=== PATIENT | female | born 1975 | race Caucasian/White ===

== ENCOUNTER 2016-09-17 09:42 | Emergency (ER) | payer MEDICARE, MEDICAID ==
[~2016-09-17] VITALS: Ht 172.7 cm; Wt 110.0 kg
[2016-09-17 09:44] VITALS: BP 141/68; PULSE 101; RESP 18; TEMP 97.6; O2SAT 100
--- NOTE | 2016-09-17 10:13 | PD ---
HPI Chief Complaint: Abdominal Pain Time Seen by Provider: 10:12 Travel History International Travel<30 days: No Contact w/Intl Traveler<30days: No Traveled to known affect area: No History of Present Illness HPI 40-year-old female came to the emergency room with history of abdominal pain and vomiting blood. Patient recently moved from another town and says she has history of gastric bypass that was done several years ago. She has had this problem in the past and required blood transfusion. She was slightly tachycardic in triage. Answering questions appropriately. Looks to be in discomfort. [facility] Past Medical History Narrative Medical List of her past medical history is reviewed from the nursing note. Anemia: Yes (BLOOD TRANSFUSIONS) Depression: Yes Diminished Hearing: No Hiatal Hernia: Yes Immunizations Current: No Seizures: Yes Tetanus Vaccination: > 5 Years Influenza Vaccination: No ?: Not LMP: 08/15/2016 : 6 Para: 2 Miscarriage: 1 : 3 Past Surgical History Abdominal Surgery: Yes (GASTRIC BYPASS 2000) Social History Alcohol Use: No Tobacco Use: Yes (09/07 PPD) Substance Use: No (DENIES) Allergies-Medications (Allergen,Severity, Reaction): Coded Allergies: Compazine (Verified Allergy, Unknown, psychotic break, 09/17/16) Comments List of her allergies reviewed from the nursing note. Reported Meds & Prescriptions Reported Meds & Active Scripts Active Omeprazole 20 Mg Tab 20 Mg PO DAILY Narrative Medication Awaiting for the nurse to do a med reconciliation for her home medications. Review of Systems Except as stated in HPI: all other systems reviewed are Neg Physical Exam Narrative GENERAL: Awake, alert, obese, moderate distress SKIN: Warm and dry. HEAD: Atraumatic. Normocephalic. EYES: Pupils equal and round. No scleral icterus. No injection or drainage. ENT: No nasal bleeding or discharge. Mucous membranes pink and moist. NECK: Trachea midline. No JVD. CARDIOVASCULAR: Regular rate and rhythm. No murmur appreciated. RESPIRATORY: No accessory muscle use. Clear to auscultation. Breath sounds equal bilaterally. GASTROINTESTINAL: Abdomen soft, non-tender, nondistended. Hepatic and splenic margins not palpable. MUSCULOSKELETAL: No obvious deformities. No clubbing. No cyanosis. No edema. NEUROLOGICAL: Awake and alert. No obvious cranial nerve deficits. Motor grossly within normal limits. Normal speech. PSYCHIATRIC: Appropriate mood and affect; insight and judgment normal. Data Data Last Documented VS Vital Signs Date Time Temp Pulse Resp B/P Pulse Ox O2 Delivery O2 Flow Rate FiO2 09/17/16 10:46 82 18 111/53 98 Room Air 09/17/16 09:44 97.6 Orders Complete Blood Count With Diff (09/17/16 10:24) Comprehensive Metabolic Panel (09/17/16 10:24) Lipase (09/17/16 10:24) Urinalysis - C+S If Indicated (09/17/16 10:24) Ct Abd/Pel W/O Iv Contrast (09/17/16 10:24) Iv Access Insert/Monitor (09/17/16 10:24) Ecg Monitoring (09/17/16 10:24) Oximetry (09/17/16 10:24) Ed Urine Pregnancytest Poc (09/17/16 10:24) Morphine Inj (Morphine Inj) (09/17/16 10:45) Ondansetron Inj (Zofran Inj) (09/17/16 10:45) Sodium Chlor 0.9% 1000 Ml Inj (Ns 1000 M (09/17/16 10:45) Pantoprazole Inj (Protonix Inj) (09/17/16 11:45) Labs Laboratory Tests Test 09/17/16 09/17/16 10:30 10:45 White Blood Count 8.4 TH/MM3 Red Blood Count 4.81 MIL/MM3 Hemoglobin 13.1 GM/DL Hematocrit 38.9 % Mean Corpuscular Volume 81.0 FL Mean Corpuscular Hemoglobin 27.2 PG Mean Corpuscular Hemoglobin 33.6 % Concent Red Cell Distribution Width 14.7 % Platelet Count 205 TH/MM3 Mean Platelet Volume 8.8 FL Neutrophils (%) (Auto) 64.1 % Lymphocytes (%) (Auto) 27.7 % Monocytes (%) (Auto) 7.6 % Eosinophils (%) (Auto) 0.0 % Basophils (%) (Auto) 0.6 % Neutrophils # (Auto) 5.4 TH/MM3 Lymphocytes # (Auto) 2.3 TH/MM3 Monocytes # (Auto) 0.6 TH/MM3 Eosinophils # (Auto) 0.0 TH/MM3 Basophils # (Auto) 0.1 TH/MM3 CBC Comment DIFF FINAL Differential Comment Sodium Level 138 MEQ/L Potassium Level 4.8 MEQ/L Chloride Level 103 MEQ/L Carbon Dioxide Level 27.8 MEQ/L Anion Gap 7 MEQ/L Blood Urea Nitrogen 12 MG/DL Creatinine 0.76 MG/DL Estimat Glomerular Filtration 85 ML/MIN Rate Random Glucose 98 MG/DL Calcium Level 8.9 MG/DL Total Bilirubin 0.2 MG/DL Aspartate Amino Transf 20 U/L (AST/SGOT) Alanine Aminotransferase 27 U/L (ALT/SGPT) Alkaline Phosphatase 62 U/L Total Protein 7.2 GM/DL Albumin 3.6 GM/DL Lipase 141 U/L Urine Color LIGHT-YELLOW Urine Turbidity HAZY Urine pH 6.5 Urine Specific [place] 1.005 Urine Protein NEG mg/dL Urine Glucose (UA) NEG mg/dL Urine Ketones NEG mg/dL Urine Occult Blood NEG Urine Nitrite NEG Urine Bilirubin NEG Urine Urobilinogen LESS THAN 2.0 MG/DL Urine Leukocyte Esterase NEG Urine RBC 2 /hpf Urine WBC 1 /hpf Urine Squamous Epithelial 11 /hpf Cells Urine Amorphous Sediment RARE Urine Bacteria RARE /hpf Urine Mucus FEW /lpf Microscopic Urinalysis Comment CULT NOT INDICATED MDM Medical Decision Making Medical Screen Exam Complete: Yes Emergency Medical Condition: Yes Medical Record Reviewed: Yes Differential Diagnosis Acute pancreatitis, small bowel obstruction, Narrative Course 10:36 AM blood test results of back and within normal limit. Patient is not anemic. Urine analysis is normal. Awaiting for the CAT scan to be done and resulted. Patient is given 1 L of IV fluid bolus and morphine for the pain. 12:05 PM CAT scan shows status post cholecystectomy and gastric bypass. No acute abnormality was detected. Patient will be discharged home. Procedures EKG Prior to Arrival: No HemaPrompt Point of Care Internal Pos. & Neg. Controls: Passed Fecal Specimen Occult Blood: Negative Diagnosis Primary Impression: Acute gastritis Qualified Code: K29.01 - Acute gastritis with hemorrhage, unspecified gastritis type Additional Impression: acute on chronic abdominal pain Referrals: Primary Care Physician 2 days Additional Instructions: Please return to the ER if the condition worsens or any other new concerns. Otherwise follow-up with your primary care. Take the medication as per the prescription direction. Med/Other Pt SpecificInfo: Prescription(s) given Scripts Omeprazole 20 Mg Tab20 Mg PO DAILY #30 TAB Ref 0 Prov:Za Lees MD 09/17/16 Disposition: 01 DISCHARGE HOME Condition: Stable Za Lees MD Sep 17, 2016 10:13
[2016-09-17] MEDS ORDERED: MORPHINE SULFATE 4 MG/ML INJ IV PUSH ONE (10:45)
[2016-09-17] MEDS ORDERED: SODIUM CHLOR 0.9% 1000 ML INJ 1,000 ML IV ONE (10:45)
[2016-09-17] MEDS ORDERED: ONDANSETRON HCL 4 MG/2 ML VIAL IV PUSH ONE (10:45)
[2016-09-17 10:46] VITALS: BP 111/53; PULSE 82; RESP 18; O2SAT 98
[2016-09-17 10:55] LABS: AUTOMATED NEUTROPHIL # 5.4 TH/MM3 (1.8-7.7); BASOPHIL # 0.1 TH/MM3 (0-0.2); BASOPHIL % 0.6 % (0.0-2.0); HEMATOCRIT 38.9 % (35.0-46.0); HEMO FLAGS DIFF FINAL; LYMPH % 27.7 % (9.0-44.0); LYMPHOCYTE # 2.3 TH/MM3 (1.0-4.8); MEAN CORPUSCULAR HEMOGLOBIN 27.2 PG (27.0-34.0); MEAN CORPUSCULAR HGB CONC 33.6 % (32.0-36.0); MONO % 7.6 % (0.0-8.0); NEUT % 64.1 % (16.0-70.0); PLATELET COUNT 205 TH/MM3 (150-450); RED BLOOD COUNT 4.81 MIL/MM3 (4.00-5.30); RED CELL DISTRIBUTION WIDTH 14.7 % (11.6-17.2); WHITE BLOOD COUNT 8.4 TH/MM3 (4.0-11.0)
[2016-09-17 11:09] LABS: BACTERIA, URINE RARE /hpf; BLOOD, URINE NEG (NEG); COMMENT (UR) CULT NOT INDICATED; CULTURE IF INDICATED CULT NOT INDICATED; GLUCOSE,URINE NEG (NEG); KETONE, URINE NEG (NEG); MUCUS URINE FEW /lpf (OCC); NITRITE,URINE NEG (NEG); PH, URINE 6.5 (5.0-8.5); SQUAMOUS EPITHELIAL CELL URINE 11 /hpf (0-5); URINE COLOR LIGHT-YELLOW (YELLW/STRAW)
[2016-09-17 11:12] LABS: ALKALINE PHOSPHATASE 62 U/L (45-117); ALT (GPT) 27 U/L (10-53); ANION GAP 7 MEQ/L (5-15); AST (GOT) 20 U/L (15-37); BICARBONATE 27.8 MEQ/L (21.0-32.0); BLOOD UREA NITROGEN 12 MG/DL (7-18); CHLORIDE 103 MEQ/L (98-107); GLOMERULAR FILTRATION RATE 85 ML/MIN (>89); SODIUM (NA) 138 MEQ/L (136-145); TOTAL BILIRUBIN ADULT 0.2 MG/DL (0.2-1.0)
[2016-09-17 11:24] LABS: POTASSIUM 4.8 MEQ/L (3.5-5.1)
[2016-09-17] MEDS ORDERED: PANTOPRAZOLE SODIUM 40 MG VIAL IV PUSH ONE (11:45)
--- NOTE | 2016-09-17 12:03 | RADRPT ---
EXAM DATE/TIME: 09/17/2016 11:44 [facility] COMPARISON: No previous studies available for comparison. INDICATIONS : Abdomen pain with nausea and vomiting for three days. ORAL CONTRAST: No oral contrast ingested. RADIATION DOSE: 16.27 CTDIvol (mGy) MEDICAL HISTORY : Hernia, hiatal. SURGICAL HISTORY : Gastric bypass. ENCOUNTER: Initial ACUITY: 1 day PAIN SCALE: 6/10 LOCATION: Bilateral abdomen. TECHNIQUE: Volumetric scanning of the abdomen and pelvis was performed. Using automated exposure control and ad justment of the mA and/or kV according to patient size, radiation dose was kept as low as reasonably achievable to obtain optimal diagnostic quality images. FINDINGS: LOWER LUNGS: The visualized lower lungs are clear. LIVER: Homogeneous density without lesion. There is no dilation of the biliary tree. Status post cholecyste ctomy. SPLEEN: Normal size without lesion. PANCREAS: Within normal limits. KIDNEYS: Normal in size and shape. There is no mass, stone, or hydronephrosis. ADRENAL GLANDS: Within normal limits. VASCULAR: There is no aortic aneurysm. BOWEL/MESENTERY: The stomach, small bowel, and colon demonstrate no acute abnormality. There is no free intraperitone al air or fluid. Sutures consistent with gastric bypass. The appendix is normal ABDOMINAL WALL: Within normal limits. RETROPERITONEUM: There is no lymphadenopathy. BLADDER: No wall thickening or mass. REPRODUCTIVE: Within normal limits. INGUINAL: There is no lymphadenopathy or hernia. MUSCULOSKELETAL: Within normal limits for patient age. CONCLUSION: Normal examination status post cholecystectomy and gastric bypass. No evidence of free fluid or mass. No evidence of obstruction. Ke Crump MD on September 17, 2016 at 12:00 Board Certified Radiologist. This report was verified electronically.
[2016-09-17] MEDS ORDERED: OMEP20TA PO (12:07)
== END 2016-09-17 12:39 | disposition home or self-care (01) ==
LOC: NEPC 09:42
DX: K29.01 Acute gastritis with bleeding (principal); R10.9 Unspecified abdominal pain; G89.29 Other chronic pain; D64.9 Anemia, unspecified; F17.210 Nicotine dependence, cigarettes, uncomplicated
CPT/HCPCS: 74176; 80053; 81001; 83690; 84703; 85025; 96361; 96374; 96375; 99284; C9113; J2270; J2405; J7030

== ENCOUNTER 2016-09-22 09:52 | Emergency (ER) | payer MEDICARE, MEDICAID ==
[~2016-09-22] VITALS: Ht 175.3 cm; Wt 111.0 kg
[~2016-09-22 09:52] MED LIST: OMEP20TA PO
[2016-09-22 09:54] VITALS: BP 159/100; PULSE 108; RESP 18; TEMP 98.3; O2SAT 98
[2016-09-22 10:02] VITALS: BP 127/58; PULSE 96; RESP 18; O2SAT 100
[2016-09-22] MEDS ORDERED: SODIUM CHLOR 0.9% 1000 ML INJ 1,000 ML IV ONE (10:13)
[2016-09-22] MEDS ORDERED: TEMA15CA PO (10:18)
[2016-09-22] MEDS ORDERED: ZYPR20TA PO (10:18)
[2016-09-22] MEDS ORDERED: FLUO60TA PO (10:18)
[2016-09-22] MEDS ORDERED: ALBUAER3 INH (10:18)
[2016-09-22] MEDS ORDERED: XANA2TAB2 PO (10:18)
[2016-09-22] MEDS ORDERED: TRIL600T PO (10:18)
--- NOTE | 2016-09-22 10:20 | PD ---
HPI Chief Complaint: [employer] Problem/Complaint Time Seen by Provider: 10:16 Travel History International Travel<30 days: No Contact w/Intl Traveler<30days: No Traveled to known affect area: No History of Present Illness HPI 40-year-old female presents to the emergency department for evaluation of low back pain and positive test. Patient was seen in the emergency department 5 days ago. At that time, her urine test was negative. CT of abdomen and pelvis showed no acute abnormality. Patient was discharged with a diagnosis of acute gastritis. She states that she has been having low back pain since then. She had a positive test this morning at home. She also states that when she woke up this morning, she had a large amount of brown vaginal discharge. Patient does report a new sexual partner for the past month. She also reports a history of gastric bypass, anemia, seizures, and bipolar disorder. Patient denies any fevers. Patient is G6, P2 with one previous miscarriage and 2 previous abortions as well as two live births. PFSH Past Medical History Anemia: Yes (BLOOD TRANSFUSIONS) Bipolar Disorder: Yes Depression: Yes Diminished Hearing: No Hiatal Hernia: Yes Psychiatric: Yes Respiratory: Yes (CHRONIC BRONCHITIS) Immunizations Current: No Seizures: Yes Tetanus Vaccination: < 5 Years Influenza Vaccination: No ?: Unknown LMP: 08/21/16 : 6 Para: 2 Miscarriage: 1 : 3 Past Surgical History Abdominal Surgery: Yes (GASTRIC BYPASS 2000) Social History Alcohol Use: No Tobacco Use: Yes (09/07 PPD) Substance Use: No (DENIES) Allergies-Medications (Allergen,Severity, Reaction): Coded Allergies: Phenergan (Verified Adverse Reaction, Severe, 09/22/16) PHYSCOTIC BREAK Compazine (Verified Adverse Reaction, Unknown, psychotic break, 09/22/16) Reported Meds & Prescriptions Reported Meds & Active Scripts Active Macrobid (Nitrofurantoin Monoh/Nitrofur Macro) 100 Mg Cap 100 Mg PO BID 7 Days Flagyl (Metronidazole) 500 Mg Tab 500 Mg PO BID 7 Days Reported Proair Hfa 8.5 GM Inh (Albuterol Sulfate) 90 Mcg/Act Aer 1 Puff INH BID PRN 108 mcg/actuation Temazepam 15 Mg Cap 15 Mg PO HS PRN Zyprexa (Olanzapine) 20 Mg Tab 20 Mg PO DAILY Fluoxetine (Fluoxetine HCl) 60 Mg Tab 50 Mg PO DAILY Xanax (Alprazolam) 2 Mg Tab 2 Mg PO Q8H PRN Trileptal (Oxcarbazepine) 600 Mg Tab 600 Mg PO TID Review of Systems Except as stated in HPI: all other systems reviewed are Neg Physical Exam Narrative GENERAL: Well-developed well-nourished female patient, ambulatory. Afebrile. SKIN: Warm and dry. HEAD: Normocephalic. Atraumatic. EYES: No scleral icterus. No injection or drainage. NECK: Supple, trachea midline. No JVD or lymphadenopathy. CARDIOVASCULAR: Regular rate and rhythm without murmurs, gallops, or rubs. RESPIRATORY: Breath sounds equal bilaterally. No accessory muscle use. Lungs sounds clear to auscultation. GASTROINTESTINAL: Abdomen soft, non-tender, nondistended. MUSCULOSKELETAL: No cyanosis, or edema. BACK: Nontender without obvious deformity. No CVA tenderness. GENITOURINARY: Normal external genitalia without lesions or erythema. Vaginal vault with mild brown discharge. Cervical os was closed without drainage. No cervical motion tenderness. Uterus nontender and nonenlarged. Bilateral adnexa nontender without masses. Pelvic exam was done with nurse at bedside. Data Data Last Documented VS Vital Signs Date Time Temp Pulse Resp B/P Pulse Ox O2 Delivery O2 Flow Rate FiO2 09/22/16 12:17 16 09/22/16 11:16 76 118/68 100 Room Air 09/22/16 09:54 98.3 Orders Beta Hcg (Quant/Titer) (09/22/16 10:13) Complete Blood Count With Diff (09/22/16 10:13) Comprehensive Metabolic Panel (09/22/16 10:13) Wet Prep Profile (09/22/16 10:13) Urinalysis - C+S If Indicated (09/22/16 10:13) Complete Rh (09/22/16 10:13) Iv Access Insert/Monitor (09/22/16 10:13) Sodium Chlor 0.9% 1000 Ml Inj (Ns 1000 M (09/22/16 10:13) Ed Urine Pregnancytest Poc (09/22/16 10:13) Gc And Chlamydia Pcr (09/22/16 10:13) Urine Culture (09/22/16 09:40) Acetaminophen (Tylenol) (09/22/16 11:15) Us Pelvis (Ques Pr/Ect)W Trans (09/22/16 ) Hydromorphone Pf Inj (Dilaudid Pf Inj) (09/22/16 14:00) Attending Discharge Order (09/22/16 ) Methotrexate Pf Inj (Methotrexate Pf Inj (09/22/16 15:00) Methotrexate Pf Inj (Methotrexate Pf Inj (09/22/16 15:00) Labs Laboratory Tests Test 09/22/16 09/22/16 09:40 09:46 Urine Color YELLOW Urine Turbidity HAZY Urine pH 6.0 Urine Specific [place] 1.009 Urine Protein NEG mg/dL Urine Glucose (UA) NEG mg/dL Urine Ketones NEG mg/dL Urine Occult Blood NEG Urine Nitrite NEG Urine Bilirubin NEG Urine Urobilinogen LESS THAN 2.0 MG/DL Urine Leukocyte Esterase TRACE Urine RBC 18 /hpf Urine WBC 12 /hpf Urine Squamous Epithelial 5 /hpf Cells Urine Amorphous Sediment RARE Urine Bacteria MANY /hpf Urine Hyaline Casts 1 /lpf Urine Mucus FEW /lpf Microscopic Urinalysis Comment CULTURE INDICATED Clue Cells (Wet Prep) PRESENT Vaginal Trichomonas (Wet Prep) NONE SEEN Vaginal Yeast (Wet Prep) NONE SEEN Chlamydia trachomatis DNA NOT DETECTED (PCR) Neisseria gonorrhoeae DNA NOT DETECTED (PCR) White Blood Count 8.1 TH/MM3 Red Blood Count 4.91 MIL/MM3 Hemoglobin 13.1 GM/DL Hematocrit 40.1 % Mean Corpuscular Volume 81.8 FL Mean Corpuscular Hemoglobin 26.6 PG Mean Corpuscular Hemoglobin 32.6 % Concent Red Cell Distribution Width 14.9 % Platelet Count 231 TH/MM3 Mean Platelet Volume 8.8 FL Neutrophils (%) (Auto) 67.9 % Lymphocytes (%) (Auto) 24.5 % Monocytes (%) (Auto) 6.8 % Eosinophils (%) (Auto) 0.0 % Basophils (%) (Auto) 0.8 % Neutrophils # (Auto) 5.5 TH/MM3 Lymphocytes # (Auto) 2.0 TH/MM3 Monocytes # (Auto) 0.5 TH/MM3 Eosinophils # (Auto) 0.0 TH/MM3 Basophils # (Auto) 0.1 TH/MM3 CBC Comment DIFF FINAL Differential Comment Sodium Level 136 MEQ/L Potassium Level 3.8 MEQ/L Chloride Level 104 MEQ/L Carbon Dioxide Level 24.2 MEQ/L Anion Gap 8 MEQ/L Blood Urea Nitrogen 10 MG/DL Creatinine 0.76 MG/DL Estimat Glomerular Filtration 85 ML/MIN Rate Random Glucose 122 MG/DL Calcium Level 8.4 MG/DL Total Bilirubin 0.2 MG/DL Aspartate Amino Transf 78 U/L (AST/SGOT) Alanine Aminotransferase 415 U/L (ALT/SGPT) Alkaline Phosphatase 141 U/L Total Protein 7.1 GM/DL Albumin 3.5 GM/DL Human Chorionic Gonadotropin, 747 MIU/ML Quant Blood Type A POSITIVE Rho(D) Type POSITIVE MDM Medical Decision Making Medical Screen Exam Complete: Yes Emergency Medical Condition: Yes Medical Record Reviewed: Yes Differential Diagnosis Intrauterine versus ectopic versus vaginitis versus UTI versus pyelonephritis Narrative Course 40-year-old female presents to the emergency department for evaluation of low back pain and brown vaginal discharge as well as positive test at home. Urine test the emergency department is positive. CBC, CMP, beta hCG, UA, the Rh are ordered and pending. Wet prep and GC chlamydia swab are ordered and pending. Ultrasound to rule ectopic is ordered and pending. CBC shows no acute abnormalities. CMP shows elevated AST of 78, ALT of 415, alkaline phosphatase 141. Beta hCG is 747. UA shows trace leukocyte esterase, 18 RBC, 12 WBC, many bacteria. Complete Rh shows blood type is A+. Wet prep is positive for clue cells, negative for Trichomonas and yeast. Chlamydia and gonorrhea were not detected. Ultrasound [-]. I contacted [employer] salesperson, Dr. Murillo, who came and saw the patient. She ordered methotrexate and would like the patient to follow up in the office. Patient will be discharged with a prescription for Macrobid for UTI and Flagyl for BV. Diagnosis Primary Impression: Abnormal in first trimester Additional Impressions: Bacterial vaginosis Urinary tract infection Qualified Code: N30.01 - Acute cystitis with hematuria Referrals: Marilyn Murillo MD call for appointment Patient Instructions: Bacterial Vaginosis (ED), General Instructions, Urinary Tract Infection in Women (ED) Additional Instructions: Take Macrobid as directed until gone. Take Flagyl as directed until gone. Do not drink alcohol level taking Flagyl or you'll get very sick. Follow-up with Dr. Murillo. Call her office for an appointment. Return to the emergency department for any acute worsening of symptoms. Med/Other Pt SpecificInfo: Prescription(s) given Scripts Nitrofurantoin Monohydrate Macrocrystals (Macrobid)100 Mg [id number] Mg PO BID 7 Days Ref 0 Prov:Corie Francis 09/22/16 Metronidazole (Flagyl)500 Mg [id number] Mg PO BID 7 Days Ref 0 Prov:Corie Francis 09/22/16 Disposition: 01 DISCHARGE HOME Condition: Stable Corie Francis Sep 22, 2016 10:20
[2016-09-22 10:41] LABS: AUTOMATED NEUTROPHIL # 5.5 TH/MM3 (1.8-7.7); BASOPHIL # 0.1 TH/MM3 (0-0.2); BASOPHIL % 0.8 % (0.0-2.0); HEMATOCRIT 40.1 % (35.0-46.0); HEMO FLAGS DIFF FINAL; LYMPH % 24.5 % (9.0-44.0); MEAN CELL VOLUME 81.8 FL (80.0-100.0); MEAN CORPUSCULAR HEMOGLOBIN 26.6 PG (27.0-34.0); MEAN CORPUSCULAR HGB CONC 32.6 % (32.0-36.0); MONO % 6.8 % (0.0-8.0); NEUT % 67.9 % (16.0-70.0); PLATELET COUNT 231 TH/MM3 (150-450); RED BLOOD COUNT 4.91 MIL/MM3 (4.00-5.30); RED CELL DISTRIBUTION WIDTH 14.9 % (11.6-17.2); WHITE BLOOD COUNT 8.1 TH/MM3 (4.0-11.0)
[2016-09-22 10:48] LABS: BACTERIA, URINE MANY /hpf; BLOOD, URINE NEG (NEG); GLUCOSE,URINE NEG (NEG); HYALINE CAST, URINE 1 /lpf (RARE); KETONE, URINE NEG (NEG); MUCUS URINE FEW /lpf (OCC); NITRITE,URINE NEG (NEG); SQUAMOUS EPITHELIAL CELL URINE 5 /hpf (0-5); URINE COLOR YELLOW (YELLW/STRAW)
[2016-09-22 10:49] LABS: COMMENT (UR) CULTURE INDICATED; CULTURE IF INDICATED CULTURE INDICATED
[2016-09-22 11:07] LABS: ALKALINE PHOSPHATASE 141 U/L (45-117); ALT (GPT) 415 U/L (10-53); BETA HCG QUANT 747 MIU/ML (0-5); TOTAL BILIRUBIN ADULT 0.2 MG/DL (0.2-1.0)
[2016-09-22 11:10] LABS: ANION GAP 8 MEQ/L (5-15); BICARBONATE 24.2 MEQ/L (21.0-32.0); BLOOD UREA NITROGEN 10 MG/DL (7-18); CHLORIDE 104 MEQ/L (98-107); GLOMERULAR FILTRATION RATE 85 ML/MIN (>89); SODIUM (NA) 136 MEQ/L (136-145)
[2016-09-22 11:11] LABS: AST (GOT) 78 U/L (15-37); POTASSIUM 3.8 MEQ/L (3.5-5.1)
[2016-09-22] MEDS ORDERED: ACETAMINOPHEN 325 MG TAB PO ONE (11:15)
[2016-09-22 11:16] VITALS: BP 118/68; PULSE 76; RESP 17; O2SAT 100
[2016-09-22 12:31] LABS: CHLAMYDIA PCR NOT DETECTED (NOT DETECT); NEISSERIA PCR NOT DETECTED (NOT DETECT)
--- NOTE | 2016-09-22 12:57 | RADRPT ---
EXAM DATE/TIME: 09/22/2016 12:06 [facility] COMPARISON: No previous studies available for comparison. INDICATIONS : Pelvic and back pain with vaginal spotting. LAB(S): Beta-hC MEDICAL HISTORY : . Anemia. Seizure. Bipolar. SURGICAL HISTORY : Gastric bypass. ENCOUNTER: Initial ACUITY: 1 day PAIN SCORE: 8/10 LOCATION: Bilateral pelvis MEASUREMENTS: UTERUS: 10.2 x 7.4 x 5.7 cm ENDOMETRIAL STRIPE: 18 mm RIGHT OVARY: 3.0 x 3.2 x 3.3 cm LEFT OVARY: 3.0 x 1.6 x 1.3 cm FINDINGS: UTERUS: The myometrium has homogeneous echotexture without mass.There is some thickening of the endometrial l ining. There is a small amount of fluid in the endometrial cavity. No definite gestational sac is dem onstrated. There is a nabothian cyst on the cervix. RIGHT OVARY: There is a complex area in the right ovary area that appears to be hypervascular. This is nonspecific . LEFT OVARY: Ovary contains no mass or significant cystic lesion. MISCELLANEOUS: Trace of free fluid in the cul-de-sac CONCLUSION: 1. No gestational sac is demonstrated. 2. Trace of fluid in the endometrial cavity. 3. 4. Mild complex area in the region of the right ovary with some hypervascularity which is nonspecific . The differential considerations include: 5. Early IUP not visualized, early ectopic not visualized versus spontaneous . Toni mmend serial beta hCGs and followup ultrasound if indicated. Christian Weaver MD on September 22, 2016 at 12:52 Board Certified Radiologist. This report was verified electronically.
[2016-09-22 13:30] VITALS: BP 130/77; PULSE 82; RESP 16; TEMP 97.8; O2SAT 99
[2016-09-22] MEDS ORDERED: HYDROmorphone HCL PF 1 MG/ML VIAL IV PUSH ONE (14:00)
[2016-09-22] MEDS ORDERED: MACR100C2 PO (14:28)
[2016-09-22] MEDS ORDERED: METR-1 PO (14:28)
[2016-09-22 14:58] VITALS: RESP 16
[2016-09-22] MEDS ORDERED: METHOTREXATE IM ONE (15:00)
[2016-09-22 18:18] VITALS: BP 130/76; TEMP 97.8
--- NOTE | 2016-10-04 10:55 | PD.CONS ---
History of Present Illness Service Gynecology Consult Requested By Corie GRAHAM Reason for Consult Evaluate and treat for ectopic . Primary Care Physician Unknown Diagnoses: (1) Ectopic (2) Abnormal in first trimester (3) Bipolar 1 disorder, manic, moderate History of Present Illness 40 y/o SWF new to area with LMP 08/21/16. Patient has significant medical problems including bipolar disorder, seizures, s/p gastric bypass, etc. She did not raise her own children and intends no more pregnancies. She was seen in ER 09/17/16 for gastritis and denied the possibility of at that point. CT of abdomen and pelvis showed no pelvic abnormalities. The patient had a large amount of brown discharge and some non-specific pelvic pain on presentation today. Ultrasound shows a mildly thickened endometrium without evidence of IUP, and some mild adnexal changes which could represent an ectopic , but not specific for location, no specific mass identified, and no significant free fluid. After discussing options for serial serum HCG vs empiric treatment for ectopic . The patient requests medical treatment for ectopic without hesitation. She knows MTX can damage a normal as well as an ectopic one, but does not want to take a chance on it either way. The need for follow up and the small but real possibility that the may progress despite medical treatment is stressed. Review of Systems Constitutional: COMPLAINS OF: Change in appetite, DENIES: Diaphoretic episodes , Fatigue, Fever, Weight gain, Weight loss, Chills, Dizziness, Night Sweats Endocrine: COMPLAINS OF: Abnorml menstrual pattern, DENIES: Heat/cold intolerance, Polydipsia, Polyuria, Polyphagia Eyes: DENIES: Blurred vision, Diplopia, Eye inflammation, Eye pain, Vision loss , Photosensitivity, Double Vision Ears, nose, mouth, throat: DENIES: Tinnitus, Hearing loss, Vertigo, Nasal discharge, Oral lesions, Throat pain, Hoarseness, Ear Pain, Running Nose, Epistaxis, Sinus Pain, Toothache, Odynophagia Respiratory: DENIES: Apneas, Cough, Snoring, Wheezing, Hemoptysis, Sputum production, Shortness of breath Cardiovascular: DENIES: Chest pain, Palpitations, Syncope, Dyspnea on Exertion , PND, Lower Extremity Edema, Orthopnea, Claudication Gastrointestinal: COMPLAINS OF: Abdominal pain, Nausea, Vomiting, DENIES: Black stools, Bloody stools, Constipation, Diarrhea, Difficulty Swallowing, Anorexia Genitourinary: COMPLAINS OF: Abnormal vaginal bleeding, DENIES: Dysmenorrhea, Dyspareunia, Sexual dysfunction, Urinary frequency, Urinary incontinence, Urgency, Hematuria, Dysuria, Nocturia, Vaginal discharge Musculoskeletal: DENIES: Joint pain, Muscle aches, Stiffness, Joint Swelling, Back pain, Neck pain Integumentary: DENIES: Abnormal pigmentation, Pruritus, Rash, Nail changes, Breast masses, Breast skin changes, Nipple discharge Hematologic/lymphatic: DENIES: Bruising, Lymphadenopathy Immunologic/allergic: DENIES: Eczema, Urticaria Neurologic: DENIES: Abnormal gait, Headache, Localized weakness, Paresthesias, Seizures, Speech Problems, Tremor, Poor Balance Psychiatric: COMPLAINS OF: Anxiety Past Family Social History Allergies: Coded Allergies: Phenergan (Verified Adverse Reaction, Severe, 09/29/16) PHYSCOTIC BREAK Compazine (Verified Adverse Reaction, Unknown, psychotic break, 09/29/16) Past Medical History Seizures Bipolar disorder Anemia Past Surgical History Gastric bypass x3 Reported Medications see chart Family History Non-contributory Social History Smokes daily Denies drug abuse or alcohol Physical Exam Physical Exam GENERAL: This is a well-nourished, well-developed patient, in no apparent distress. Obese and tearful, anxious SKIN: No rashes, ecchymoses or lesions. Cool and dry. HEAD: Atraumatic. Normocephalic. No temporal or scalp tenderness. EYES: Pupils equal round and reactive. Extraocular motions intact. No scleral icterus. No injection or drainage. CARDIOVASCULAR: Regular rate and rhythm without murmurs, gallops, or rubs. RESPIRATORY: Clear to auscultation. Breath sounds equal bilaterally. No wheezes , rales, or rhonchi. GASTROINTESTINAL: Abdomen soft, obese, non-tender, nondistended. No hepato- splenomegaly, or palpable masses. No guarding.NEUROLOGICAL: Awake and alert. Cranial nerves II through XII intact. Motor and sensory grossly within normal limits. Five out of 5 muscle strength in all muscle groups. Normal speech. Laboratory beta HCG 700+ Imaging TVUS imaging and report reviewed. Assessment and Plan Assessment and Plan Early ectopic without evidence of rupture or mass, no IUP, no visible GS. Discussed Condition With Pharmacy was contact for assistence in ordering the correct dose of MTX by body surface area. Precautions for rupture discussed with patient. Discharge Planning Home with f/u in my office in a week or less. She is given my contact information. Problem Qualifiers (1) Ectopic : Qualified Code: O00.90 - Ectopic without intrauterine , unspecified location Marilyn Murillo MD Oct 04, 2016 10:55
== END 2016-09-22 18:18 | disposition home or self-care (01) ==
LOC: NEPA 09:52
DX: N76.0 Acute vaginitis (principal); N39.0 Urinary tract infection, site not specified; N30.01 Acute cystitis with hematuria; F31.9 Bipolar disorder, unspecified; F17.200 Nicotine dependence, unspecified, uncomplicated
CPT/HCPCS: 76700; 76817; 80053; 81001; 84702; 84703; 85025; 86901; 87086; 87210; 87491; 87591; 96361; 96372; 96374; 99284; J1170; J7030; J9250

== ENCOUNTER 2016-09-29 15:25 | Emergency (ER) | payer MEDICARE, MEDICAID ==
[~2016-09-29] VITALS: Ht 175.3 cm; Wt 115.0 kg
[~2016-09-29 15:25] MED LIST changes: +ALBUAER3 INH; +FLUO60TA PO; +MACR100C2 PO; +METR-1 PO; -OMEP20TA PO; +TEMA15CA PO; +TRIL600T PO; +XANA2TAB2 PO; +ZYPR20TA PO
[2016-09-29 15:27] VITALS: BP 136/83; PULSE 79; RESP 14; TEMP 98.4; O2SAT 98
--- NOTE | 2016-09-29 16:18 | PD ---
HPI Chief Complaint: Abdominal Pain Time Seen by Provider: 16:18 Travel History International Travel<30 days: No Contact w/Intl Traveler<30days: No Traveled to known affect area: No History of Present Illness HPI 40-year-old female came to the emergency room with history of pelvic pain radiating to her back. Patient has had this pain for past 10 days now. She was diagnosed with ectopic and received methotrexate shots 1 week ago. However patient says that she hasn't had any vaginal bleeding and she still is in significant distress. Vital signs are stable. Patient says that she was trying to have a VEHICLE CARE SPECIALIST appointment done as an outpatient but was completely unsuccessful and hence came back to the emergency room. She says she does not feel any different in spite of the methotrexate shot. She says she has 2 older children, one being 21 years old and the other 17 years old and she is not interested in having any more children. PFSH Past Medical History Narrative Medical List of her past medical history is reviewed from the nursing note. Anemia: Yes (BLOOD TRANSFUSIONS) Bipolar Disorder: Yes Depression: Yes Diminished Hearing: No Hiatal Hernia: Yes Psychiatric: Yes Respiratory: Yes (CHRONIC BRONCHITIS) Immunizations Current: No Seizures: Yes : 6 Para: 2 Miscarriage: 1 : 3 Past Surgical History Abdominal Surgery: Yes (GASTRIC BYPASS 2000) Social History Alcohol Use: No Tobacco Use: Yes (09/07 PPD) Substance Use: No (DENIES) Allergies-Medications (Allergen,Severity, Reaction): Coded Allergies: Phenergan (Verified Adverse Reaction, Severe, 09/29/16) PHYSCOTIC BREAK Compazine (Verified Adverse Reaction, Unknown, psychotic break, 09/29/16) Comments List of her allergies reviewed from the nursing note. Reported Meds & Prescriptions Reported Meds & Active Scripts Active Reported Proair Hfa 8.5 GM Inh (Albuterol Sulfate) 90 Mcg/Act Aer 1 Puff INH BID PRN 108 mcg/actuation Xanax (Alprazolam) 2 Mg Tab 2 Mg PO Q8H PRN Trileptal (Oxcarbazepine) 600 Mg Tab 600 Mg PO TID Narrative Medication List of her home medications reviewed from the nursing note. Review of Systems Except as stated in HPI: all other systems reviewed are Neg Physical Exam Narrative GENERAL: Awake, alert, obese, mild distress SKIN: Warm and dry. HEAD: Atraumatic. Normocephalic. EYES: Pupils equal and round. No scleral icterus. No injection or drainage. ENT: No nasal bleeding or discharge. Mucous membranes pink and moist. NECK: Trachea midline. No JVD. CARDIOVASCULAR: Regular rate and rhythm. No murmur appreciated. RESPIRATORY: No accessory muscle use. Clear to auscultation. Breath sounds equal bilaterally. GASTROINTESTINAL: Abdomen soft, non-tender, nondistended. Hepatic and splenic margins not palpable. MUSCULOSKELETAL: No obvious deformities. No clubbing. No cyanosis. No edema. NEUROLOGICAL: Awake and alert. No obvious cranial nerve deficits. Motor grossly within normal limits. Normal speech. PSYCHIATRIC: Appropriate mood and affect; insight and judgment normal. Data Data Last Documented VS Vital Signs Date Time Temp Pulse Resp B/P Pulse Ox O2 Delivery O2 Flow Rate FiO2 09/29/16 19:33 68 16 124/58 98 Room Air 09/29/16 15:27 98.4 Orders Complete Blood Count With Diff (09/29/16 16:25) Beta Hcg (Quant/Titer) (09/29/16 16:25) Comprehensive Metabolic Panel (09/29/16 16:27) Urinalysis - C+S If Indicated (09/29/16 16:27) Methotrexate Pf Inj (Methotrexate Pf Inj (09/29/16 18:45) Acetamin-Hydrocod 325-5 Mg (Anson 5-325 (09/29/16 18:45) Acetamin-Hydrocod 325-5 Mg (Anson 5-325 (09/29/16 18:45) Us Pelvis (Ques Pr/Ect)W Trans (09/29/16 ) Labs Laboratory Tests Test 09/29/16 16:40 White Blood Count 8.5 TH/MM3 Red Blood Count 4.97 MIL/MM3 Hemoglobin 13.5 GM/DL Hematocrit 40.7 % Mean Corpuscular Volume 81.9 FL Mean Corpuscular Hemoglobin 27.1 PG Mean Corpuscular Hemoglobin 33.1 % Concent Red Cell Distribution Width 15.1 % Platelet Count 232 TH/MM3 Mean Platelet Volume 8.5 FL Neutrophils (%) (Auto) 63.9 % Lymphocytes (%) (Auto) 29.2 % Monocytes (%) (Auto) 6.5 % Eosinophils (%) (Auto) 0.0 % Basophils (%) (Auto) 0.4 % Neutrophils # (Auto) 5.4 TH/MM3 Lymphocytes # (Auto) 2.5 TH/MM3 Monocytes # (Auto) 0.6 TH/MM3 Eosinophils # (Auto) 0.0 TH/MM3 Basophils # (Auto) 0.0 TH/MM3 CBC Comment DIFF FINAL Differential Comment Urine Color YELLOW Urine Turbidity HAZY Urine pH 5.0 Urine Specific Cannon 1.027 Urine Protein NEG mg/dL Urine Glucose (UA) NEG mg/dL Urine Ketones NEG mg/dL Urine Occult Blood TRACE Urine Nitrite NEG Urine Bilirubin NEG Urine Urobilinogen LESS THAN 2.0 MG/DL Urine Leukocyte Esterase SMALL Urine RBC 1 /hpf Urine WBC 2 /hpf Urine Squamous Epithelial 5 /hpf Cells Urine Mucus FEW /lpf Microscopic Urinalysis Comment CULT NOT INDICATED Sodium Level 138 MEQ/L Potassium Level 4.1 MEQ/L Chloride Level 105 MEQ/L Carbon Dioxide Level 25.1 MEQ/L Anion Gap 8 MEQ/L Blood Urea Nitrogen 13 MG/DL Creatinine 0.72 MG/DL Estimat Glomerular Filtration 90 ML/MIN Rate Random Glucose 82 MG/DL Calcium Level 9.2 MG/DL Total Bilirubin 0.2 MG/DL Aspartate Amino Transf 16 U/L (AST/SGOT) Alanine Aminotransferase 119 U/L (ALT/SGPT) Alkaline Phosphatase 92 U/L Total Protein 7.3 GM/DL Albumin 3.8 GM/DL Human Chorionic Gonadotropin, 889 MIU/ML Quant MDM Medical Decision Making Medical Screen Exam Complete: Yes Emergency Medical Condition: Yes Medical Record Reviewed: Yes Differential Diagnosis Chronic pelvic pain, UTI, ectopic Narrative Course 5:35 PM awaiting for the chemistry and the beta hCG Quant. Urine analysis is within normal limits and her CBC is within normal limits. 5:42 PM beta-HCG is 889 which is slightly higher than 1 week ago when it should have been ideally 0 since she had received methotrexate. I have put a call out for the VEHICLE CARE SPECIALIST transition teacher to discuss this case with them. In my opinion this patient should have a laparoscopy done at this point. 6:44 PM I discussed the case with Dr. Murillo who had seen this patient 1 week ago. As per her a second dose of methotrexate should be given at 150 milligrams IM. Since there is no free fluid no surgery is necessary. She would see the patient in her office on Monday at 12:30. I let the patient know about this plan. The meat cutting teacher was just finishing up with the bedside ultrasound and she did not see a large quantity of free fluid in the pelvis. I' m comfortable discharging the patient after the methotrexate shot. Procedures EKG Prior to Arrival: No Diagnosis Primary Impression: Ectopic Qualified Code: O00.90 - Ectopic , unspecified location, unspecified whether intrauterine present Referrals: Marilyn Murillo MD Additional Instructions: Please follow-up with Dr. Gutierrez in her office on Monday at 12:30 PM. Have to call the office to confirm the appointment. Just show up. Return to the ER if symptoms worsen before that. Disposition: 01 DISCHARGE HOME Condition: Stable Za Lees MD Sep 29, 2016 16:18
[2016-09-29 17:00] LABS: AUTOMATED NEUTROPHIL # 5.4 TH/MM3 (1.8-7.7); BASOPHIL % 0.4 % (0.0-2.0); HEMATOCRIT 40.7 % (35.0-46.0); HEMO FLAGS DIFF FINAL; LYMPH % 29.2 % (9.0-44.0); LYMPHOCYTE # 2.5 TH/MM3 (1.0-4.8); MEAN CELL VOLUME 81.9 FL (80.0-100.0); MEAN CORPUSCULAR HEMOGLOBIN 27.1 PG (27.0-34.0); MEAN CORPUSCULAR HGB CONC 33.1 % (32.0-36.0); MONO % 6.5 % (0.0-8.0); NEUT % 63.9 % (16.0-70.0); PLATELET COUNT 232 TH/MM3 (150-450); RED BLOOD COUNT 4.97 MIL/MM3 (4.00-5.30); RED CELL DISTRIBUTION WIDTH 15.1 % (11.6-17.2); WHITE BLOOD COUNT 8.5 TH/MM3 (4.0-11.0)
[2016-09-29 17:03] LABS: BLOOD, URINE TRACE (NEG); COMMENT (UR) CULT NOT INDICATED; CULTURE IF INDICATED CULT NOT INDICATED; GLUCOSE,URINE NEG (NEG); KETONE, URINE NEG (NEG); MUCUS URINE FEW /lpf (OCC); NITRITE,URINE NEG (NEG); SQUAMOUS EPITHELIAL CELL URINE 5 /hpf (0-5); URINE COLOR YELLOW (YELLW/STRAW)
[2016-09-29 17:31] LABS: ANION GAP 8 MEQ/L (5-15); AST (GOT) 16 U/L (15-37); BICARBONATE 25.1 MEQ/L (21.0-32.0); BLOOD UREA NITROGEN 13 MG/DL (7-18); CHLORIDE 105 MEQ/L (98-107); GLOMERULAR FILTRATION RATE 90 ML/MIN (>89); POTASSIUM 4.1 MEQ/L (3.5-5.1); SODIUM (NA) 138 MEQ/L (136-145)
[2016-09-29 17:35] LABS: ALKALINE PHOSPHATASE 92 U/L (45-117); ALT (GPT) 119 U/L (10-53); TOTAL BILIRUBIN ADULT 0.2 MG/DL (0.2-1.0)
[2016-09-29 17:36] LABS: BETA HCG QUANT 889 MIU/ML (0-5)
[2016-09-29] MEDS ORDERED: ACETAMINOPHEN/HYDROcodone 325 MG/5 MG TAB PO ONE ×2 (18:45)
[2016-09-29] MEDS ORDERED: METHOTREXATE SOD PF 50 MG/2 ML VIAL IM ONE (18:45)
[2016-09-29 19:33] VITALS: BP 124/58; PULSE 68; RESP 16; O2SAT 98
--- NOTE | 2016-09-29 19:43 | RADRPT ---
EXAM DATE/TIME: 09/29/2016 18:16 [facility] COMPARISON: No previous studies available for comparison. INDICATIONS : Pelvic pain. LAB(S): Beta-hC MEDICAL HISTORY : . Hernia, hiatal. Anemia. Seizures. Chronic bronchitis. Bipolar. SURGICAL HISTORY : Gastric bypass. Blood transfusions. ENCOUNTER: Subsequent ACUITY: 1 week PAIN SCORE: 8/10 LOCATION: Bilateral pelvis MEASUREMENTS: RIGHT OVARY: 3.0 x 3.2 x 2.7 cm UTERUS: 9.9 x 7.5 x 5.5 cm ENDOMETRIAL STRIPE: 16 mm LEFT OVARY: 2.2 x 1.8 x 0.9 cm FINDINGS: UTERUS: The endometrium contains a miniscule rounded hypoechoic area in addition to an oblong slightly greate r than 1 cm hypoechoic area. No definitive gestational sac though very early gestational sac and hung cent hemorrhage would be a consideration. There are multiple nabothian cysts in the cervix. RIGHT OVARY: Ovary contains no mass or significant cystic lesion. LEFT OVARY: Ovary contains no mass or significant cystic lesion. MISCELLANEOUS: No free fluid. CONCLUSION: No definitive intrauterine gestation. Equivocal exam Israel Parsons MD on September 29, 2016 at 19:37 Board Certified Radiologist. This report was verified electronically.
== END 2016-09-29 19:54 | disposition home or self-care (01) ==
LOC: NEPC 15:25
DX: O00.90 Unspecified ectopic pregnancy without intrauterine pregnancy (principal); F17.210 Nicotine dependence, cigarettes, uncomplicated
CPT/HCPCS: 76700; 76817; 80053; 81001; 84702; 85025; 96372; 99284; J9250